=== PATIENT | male | born 1940 | race Caucasian/White ===

== ENCOUNTER 2016-09-25 07:20 | Inpatient (IN) ==
[~2016-09-25 07:20] MED LIST: ACETAMINOPHEN 500 MG TABLET PO ONE; CEFAZOLIN 1 G INJECTION IVP ONE; DEXAMETHASONE 4 MG/ML INJECTION IVP ONE; FAMOTIDINE PB 20 MG/50 ML BAG IV ONE; LIDOCAINE 1% (10mg/ml) 10mL MDV SQ ONE; MELOXICAM 15 MG TABLET PO ONE; METOCLOPRAMIDE 10mg/2ml INJECTION IVP ONE; NOZIN NASAL SWAB NAS ONE; ONDANSETRON 4 MG/2 ML INJECTION IVP ONE; TRANEXAMIC ACID 1,000 MG in NS 100 ML IV ONE
[2016-09-25] MEDS ORDERED: SALINE FLUSH 10ml SYRINGE IVF PRN (09:08)
[2016-09-25 10:08] VITALS: BMI 30.3
[2016-09-25] MEDS: LR 1,000 ML IV SCH ×2 (10:55→14:24)
[2016-09-25] MEDS ORDERED: LIDOCAINE 1% (10mg/ml) 2mL INJ PF SDV ID ONE (11:00)
--- NOTE | 2016-09-25 12:29 | Anesthesia Preoperative Report ---
Anesthesia Preoperative Record - Date and Time Date: 09/25/16 Preoperative Diagnosis: Rt [id number] Proposed Procedure: right tka NPO Since Date: 09/24/16 NPO Since Time: 23:00 Allergies/Adverse Reactions: Allergies Allergy/AdvReac Type Severity Reaction Status Date / Time simvastatin Allergy Mild pain Verified 09/25/16 10:29 atenolol Allergy Unknown SOA Verified 09/25/16 10:29 pregabalin [From Lyrica] Allergy Unknown tongue Verified 09/25/16 10:29 swelling methotrexate AdvReac Unknown orientation Verified 09/25/16 10:29 disturbances - Vital Signs Vital Signs: Temperature 99.5 F 09/25/16 10:05 Pulse Rate 95 09/25/16 10:05 Respiratory Rate 14 09/25/16 10:05 Blood Pressure 187/88 H 09/25/16 10:05 Pulse Oximetry 89 L 09/25/16 10:05 Oxygen Delivery Method Room Air Height and Weight: Height 1.85 m Weight 104.3 kg Body Mass Index 30.3 - Medications Inpatient Medications: Current Medications Epinephrine HCl 0.25 mg/Bupivacaine HCl 30 ml/Morphine Sulfate 15 mg/Ketorolac Tromethamine 60 mg/Sodium Chloride 65.25 mls @ 1 mls/hr OPSITE INTRAOP ONE PRN Reason: Protocol Stop: 09/28/16 01:14 Lactated Ringer's (Lactated Ringers) 1,000 mls @ 50 mls/hr IV .Q20H DANIELLA Last Admin: 09/25/16 10:55 Dose: 50 mls/hr Sodium Chloride (Iv Flush) 10 - 80 ml IVF PRN PRN PRN Reason: Flushing Home Medications: Home Medications Medication Instructions Recorded Confirmed Type Hydroxychloroquine Sulfate 200 mg PO BID #0 07/07/12 09/25/16 History [Plaquenil] Gabapentin 1 tab PO HS #0 cap 07/30/16 09/25/16 History Ibuprofen 1 tab PO Q4H PRN #0 tab 07/30/16 09/25/16 History Ipratropium/Albuterol Sulfate 1 unit AEROSOL DAILY PRN #0 vial 07/30/16 History [Iprat-Albut 0.5-3(2.5) mg/3 ml] Losartan Potassium 100 mg PO BID #0 tab 07/30/16 09/25/16 History Nortriptyline HCl 1 cap PO HS #0 07/30/16 09/25/16 History Oxaprozin [Daypro] 1 tab PO BID #42 tab 07/30/16 09/25/16 History Budesonide [Budesonide] 1 ampul INH DAILY 09/15/16 09/25/16 History Nerve Renew 1 cap PO DAILY 09/15/16 09/25/16 History - Medical History Cardiovascular: Reports: Hypertension - Surgical History Neurological Surgeries: Reports: Other (back surgery) HEENT Surgeries: Reports: Eye Surgery (Cataract OS) GI Surgery/Treatments: Reports: Appendectomy, Hernia Repair (RT ING), Colonoscopy (POLYP) Surgery/Treatment: REPORT: Other (right orchiectomy) Musculoskeletal Surgery/Tx: Reports: Orthopedic Surgery (exc left olecranon bursa) Anesthesia Reactions: None - Social History Smoking Status: Former smoker - Pertinent Findings EKG Rhythm: Normal Sinus Rhythm - Physical Exam Respiratory Exam: Present: lungs clear, bilateral breath sounds equal Cardiovascular Exam: Present: regular rate and rhythm, no murmur - Airway Assessment Mallampati Score: II TMD: 2 Fingerbreadths Neck Extension: fair Teeth: upper dentures, lower dentures Overall Assessment: no airway concerns - ASA ASA Score: 2 - Plan Anesthesia: General Inhalation Gases - Discussion Discussion: Discussed risks/options/alternatives of anesthesia and questions answered. Patient consents. Nursing pain assessment noted. Attestation Statement: Prior to the delivery of any anesthetic medication, I examined the patient, developed the plan, obtained the patient's consent and discussed the risk and benefits of the procedure with the patient/guardian.
[2016-09-25] MEDS ORDERED: ROPIVACAINE 0.5% (5mg/ml) 30ml INJ ONE (12:35)
[2016-09-25] MEDS ORDERED: MIDAZOLAM 2mg/2ml INJECTION IVP ONE (12:36)
[2016-09-25] MEDS ORDERED: [UNRECOGNIZED DRUG - OTHER] IV ONE (12:45)
[2016-09-25] MEDS ORDERED: VANCOMYCIN 1,000 MG INJECTION ONE (12:52)
[2016-09-25] MEDS ORDERED: FentaNYL 250 MCG/5 ML INJECTION ONE (12:56)
--- NOTE | 2016-09-25 12:58 | Anesthesia Procedure Note ---
Peripheral Nerve Blockade - Procedure Physician: Wero Urena MD Date: 09/25/16 Surgical Procedure: right knee arthroplasty Discussion: Discussed risks/options/alternatives of anesthesia and questions answered. Patient consents. Nursing pain assessment noted. Block Start: 12:39 Block Stop: 12:45 Blocked Employed: Adductor Canal Indication: Post-Operative Pain Approach: Right Side Confirmed Position: Supine Patient: Consent, Risks/Benefits Discussed, Informed, Post Block Act. Discussed IV Sedation: Yes Midazolam (mg): 2 Initial Vital Signs: Temperature 99.5 F 09/25/16 10:05 Temperature Source Oral 09/25/16 10:05 Pulse Rate 95 09/25/16 10:05 Respiratory Rate 14 09/25/16 10:05 Blood Pressure 187/88 H 09/25/16 10:05 Blood Pressure Mean 121 09/25/16 10:05 Blood Pressure Position Supine 09/25/16 10:05 Pulse Oximetry 89 L 09/25/16 10:05 Oxygen Delivery Method 09/25/16 10:05 Post Vital Signs: Temperature 99.5 F 09/25/16 10:05 Pulse Rate 95 09/25/16 10:05 Respiratory Rate 14 09/25/16 10:05 Blood Pressure 187/88 H 09/25/16 10:05 Pulse Oximetry 89 L 09/25/16 10:05 Oxygen Delivery Method Room Air Initial Pain Pain Score: 3 Post Block Pain Score: 3 Prep: Chlorhexadine/ETOH Ultrasound Used?: Yes - Injectate Ropivacaine (%): 0.5 Ropivacaine (mL): 20 Was Epi 1:200,000 Used?: No Injection: Injection made incrementally with constant monitoring and aspiration every ml
[2016-09-25] MEDS ORDERED: VANCOMYCIN 1,000 MG INJECTION IAR ONE (13:55)
[2016-09-25] MEDS ORDERED: HYDROMORPHONE 2 MG/ML INJECTION IVP PRN (14:18)
[2016-09-25] MEDS: EPINEPHrine 0.25 MG, BUPIVACAINE 0.25% PF 30 ML, MORPHINE SULFATE 15 MG, KETOROLAC INJ ... OPSITE ONE ×2 (14:22→15:10)
[2016-09-25] MEDS ORDERED: ONDANSETRON 4 MG/2 ML INJECTION ONE (15:03)
--- NOTE | 2016-09-25 15:16 | Operative Note ---
- Procedure Date of Admission: 09/25/16 Side: right Preoperative Diagnosis: knee primary DJD Postoperative Diagnosis: Same as preoperative diagnosis. Operation: total knee arthroplasty (right) Surgeon: Emelina Urena MD Intensivist: KAZ Swanson Complications: None. Anesthesia: General Inhalation Gases Peripheral Nerve Block: Saphenous-Right Estimated Blood Loss: See Anesthesia Record. Fluids: Please see Anesthesia Record. Description of Procedure: Mr. queen in his right knee were identified and marked in the preoperative holding area. He is brought back to the operating suite and general anesthetic was administered. He was intubated. The right lower extremity was prepped and draped in my normal sterile fashion. Timeout was performed A standard anterior incision followed by a medial parapatellar approach was utilized. He had full thickness lesions in the lateral compartment. A distal femoral cut was made in 5 of valgus using intramedullary guide. The femur was sized at a 7 and rotation set using the epicondylar axis. Distal femoral cuts were performed. A proximal tibial cut was made using extramedullary guide. Remaining osteophytes and meniscus were removed. Gaps were checked and they were well balanced and rectangular. Trial components were placed with a 9 mm spacer. This allowed for full range of motion and the patella tracked well. The knee was stable throughout range of motion. The patella was resurfaced with the knee in extension to a size 35. The tibia rotation was then marked and the tibia stamped at the proper rotation at a size 7. Leg was exsanguinated and the tourniquet inflated 250 mmHg. The bone was prepared for cementing and all components cemented into place and allowed to cure in extension. Betadine solution was used for 3 minutes during the curing period and then fully irrigated out with 1 L of normal saline. The tourniquet was deflated and hemostasis obtained with electrocautery. After the cement had cured the knee was taken through range of motion check for balance and stability which were good. Vancomycin powder was placed into the wound. The arthrotomy was closed with #1 Vicryl. The remainder of the wound was then closed by my political science research assistant utilizing 2-0 vycral in the subcutaneous tissue. 4-0 monocryl was used in the subcuticular layer followed by dermabond and a sterile dressing. After closure the patient will be transferred to the recovery room under the care of anesthesia.
--- NOTE | 2016-09-25 15:26 | History & Physical Update ---
- History and Physical Update Date: 09/25/16 Update: I evaluated this patient and found no changes in the history and clinical exam findings. The treatment plan and recommendations are also unchanged from the previous documentation.
--- NOTE | 2016-09-25 16:25 | Anesthesia Postoperative Note ---
- Date and Time Date: 09/25/16 Time: 16:25 - Status Patient Participated in Evaluation: Patient Participated in Person Vital Signs: Temperature 97 F 09/25/16 15:37 Pulse Rate 83 09/25/16 16:10 Respiratory Rate 18 09/25/16 16:10 Blood Pressure 137/74 09/25/16 16:10 Pulse Oximetry 92 09/25/16 16:10 Oxygen Delivery Method Simple Mask Oxygen Flow Rate 3 Respiratory Function: Airway Patent Cardiovascular Function: Regular Pulse EKG Rhythm: Normal Sinus Rhythm Mental Status: Alert and Oriented Pain Intensity: 0 Hydration: IV Infusing Complications During Recover: None Apparent - Follow-Up Instructions Instructions: Per Surgeon
[2016-09-25] MEDS ORDERED: DiphenhydrAMINE 50 MG/ML INJECTION IVP PRN (16:43)
[2016-09-25] MEDS ORDERED: ALBUTEROL/IPRATROPIUM 2.5mg-0.5mg/3ml NEB AEROSOL PRN (16:43)
[2016-09-25] MEDS ORDERED: NS 1,000 ML IV SCH (16:43)
[2016-09-25] MEDS ORDERED: LORazepam 1 MG TABLET PO PRN (16:43)
[2016-09-25] MEDS ORDERED: ONDANSETRON 4 MG/2 ML INJECTION IVP PRN (16:43)
[2016-09-25] MEDS ORDERED: NOZIN NASAL SWAB NAS ONE (16:43)
[2016-09-25] MEDS ORDERED: DiphenhydrAMINE 25 MG CAPSULE PO PRN (16:43)
--- NOTE | 2016-09-25 16:58 | XRay Report ---
Indication: postoperative image right knee replacement PROCEDURE: XR knee RT 2V: Encounter: Initial Comparison: None Findings: Postoperative changes of right total knee replacement are seen. There is expected postoperative subcutaneous gas. No evidence of hardware failure or acute fracture. No retained radiopaque surgical instruments or sponges. Overlying material causing artifact. Impression: New right total knee prosthesis without evidence of immediate complication. .
[2016-09-25] MEDS: ACETAMINOPHEN 325 MG TABLET PO SCH ×2 (17:48→21:17)
[2016-09-25] MEDS ORDERED: OXAPROZIN 600 MG TABLET PO SCH (21:00)
[2016-09-25] MEDS: HYDROXYCHLOROQUINE 200 MG TABLET PO SCH (21:16)
[2016-09-25] MEDS: NOZIN NASAL SWAB NAS SCH (21:16)
[2016-09-25] MEDS: LOSARTAN 100 MG TABLET PO SCH (21:17)
[2016-09-25] MEDS: DOCUSATE SODIUM 100 MG CAPSULE PO SCH (21:17)
[2016-09-25] MEDS: ASPIRIN *EC* 325 MG TABLET PO SCH (21:17)
[2016-09-25] MEDS: CEFAZOLIN 2 G in NS 100 ML IV SCH (21:18)
[2016-09-25] MEDS ORDERED: SENNOSIDES 8.6 MG TABLET PO SCH (22:00)
[2016-09-25] MEDS ORDERED: GABAPENTIN 400 MG CAPSULE PO SCH (22:00)
[2016-09-25] MEDS ORDERED: NORTRIPTYLINE 25 MG CAPSULE PO SCH (22:00)
[2016-09-26] MEDS: NOZIN NASAL SWAB NAS SCH (05:28)
[2016-09-26] MEDS: CEFAZOLIN 2 G in NS 100 ML IV SCH (05:28)
[2016-09-26 05:37] LABS: Anion Gap 10 MEQ/L (5-15); BUN/Creatinine Ratio 31 RATIO (6-26); CO2 - Carbon Dioxide - NMC 29 MEQ/L (22-30); Calcium - NMC 8.6 MG/DL (8.4-10.2); Chloride - NMC 102 MEQ/L (98-107); Glomerular Filtration Rate 82; Glucose - NMC 122 MG/DL (75-110); NA - Sodium - NMC 141 MEQ/L (134-144); Osmolality,Calculated 278 MOSM/KG (261-280); Potassium 4.6 MEQ/L (3.6-5)
[2016-09-26 05:39] LABS: Hematocrit 43.8 % (41-53); Hemoglobin 13.2 GM/DL (13.5-17.5); Mean Corpuscular Hemoglobin 29.3 UUG (26-34); Mean Corpuscular Volume 97.3 UM3 (80-100); Mean Platelet Volume 9.4 UM3 (9.4-12.4); RDW Standard Deviation 47.9 FL (36.9-50.2); Red Blood Count 4.5 M/MM3 (4.50-5.90); White Blood Count 10.6 T/MM3 (4.5-11.0)
--- NOTE | 2016-09-26 07:52 | Extended Care Facility Orders ---
Admission Orders Admit to:: Jail Allergies/Adverse Reactions: Allergies simvastatin Allergy (Mild, Verified 09/25/16 10:29) pain atenolol Allergy (Unknown, Verified 09/25/16 10:29) SOA pregabalin [From Lyrica] Allergy (Unknown, Verified 09/25/16 10:29) tongue swelling methotrexate Adverse Reaction (Unknown, Verified 09/25/16 10:29) orientation disturbances Admitting Diagnosis: Rt TKA-M17.11 Admitting Physician: Wero Urena MD Attending Physician: Wero Urena MD Anticiapted Length of Stay: 30 days or less Rehab Potential: good Rehab Prognosis: good Diet: 09/25/16 Dinner Regular Diet [DIET] Diet Modifications: May use Facility Protocol or Standing Orders: Yes May have flu vaccine: Yes Evaluations/Treatment: PT, OT Jail Certification: I certify that SNF services are required to be given on an Inpatient basis because of the patients need for intermediate care on a continuing basis for the condition(s) for which he/she received inpatient hospital services prior to his/her transfer to the SNF. SNF inpatient care is necessary for the following reasons Indication for Jail: Postop Assessment Care - Additional Information In Event of Arrest: Start CPR,call 911,send patient to the ER Referrals: Wero Urena MD [Physician] - 10/20/16 11:00 am Additional Orders: REGULAR DIET. WEIGHT BEARING TOLERATED
--- NOTE | 2016-09-26 08:44 | Orthopedic Progress Note ---
Date: Subjective/Severity of Illness: Canaan is doing great. No CP cough or feeling SOA. He did need oxygen overnight and RT feels he needs a sleep study. Was on up to 6L NC at one point. Nursing reports to me that anesthesia felt his baseline sats are around 88%. Deven feel good and is not aware of any breathing problems. His knee is not too painful. No other concerns at this time. Orthopedic Objective PO Vital signs: Temperature 96.9 F 09/26/16 07:54 Pulse Rate 69 09/26/16 07:54 Respiratory Rate 18 09/26/16 08:34 Blood Pressure 134/69 09/26/16 07:54 Pulse Oximetry 97 09/26/16 08:34 Oxygen Delivery Method Nasal Cannula Oxygen Flow Rate 4 Height and Weight: Height 6 ft 1 in Weight 233 lb 3.985 oz Body Mass Index 30.3 - Constitutional General Appearance: Present: alert, no acute distress - Respiratory Exam Present: non-labored (Sats in the 90's at this time.) - Extremities Exam Extremities: Present: pulses intact - Surgical Site Incision: Mepilex dressing intact, dressing intact, no drainage - Neurological Exam Present: no deficits - Psychiatric Exam Present: alert - Labs Result Diagrams: 09/26/16 04:14 09/26/16 04:14 Abnormal lab results 09/26/16 09/26/16 Range/Units 04:14 04:14 Hgb 13.2 L (13.5-17.5) GM/DL MCHC 30.1 L (31-37) GM/DL BUN 28.0 H (9-20) MG/DL BUN/Creatinine Ratio 31 H (6-26) RATIO Glucose 122 H (75-110) MG/DL H & H 09/26/16 Range/Units 04:14 Hgb 13.2 L (13.5-17.5) GM/DL Hct 43.8 (41-53) % Orthopedic Assessment and Plan (1) Arthritis of knee, right Status: Acute Assessment and Plan: Aspirin x 6 weeks for DVT coverage. SCD's for added protection. Mobilize with therapy. CM for discharge planning. Pt will need sleep study after discharge to [facility] for NAOMI. Hospital Course Summary Disclaimer: The visit summary below is not to be considered part of the above Progress Note.
[2016-09-26] MEDS: DOCUSATE SODIUM 100 MG CAPSULE PO SCH (08:53)
[2016-09-26] MEDS: HYDROXYCHLOROQUINE 200 MG TABLET PO SCH (08:54)
[2016-09-26] MEDS: LOSARTAN 100 MG TABLET PO SCH (08:54)
[2016-09-26] MEDS: Oxycodone *IR* 5 MG TABLET PO PRN ×2 (08:54→14:36)
[2016-09-26] MEDS: ACETAMINOPHEN 325 MG TABLET PO SCH ×2 (08:55→14:37)
[2016-09-26] MEDS: ASPIRIN *EC* 325 MG TABLET PO SCH (08:55)
[2016-09-26] MEDS ORDERED: BUDESONIDE INH.SOLN 0.5mg/2ml NEB IH SCH (09:00)
[2016-09-26] MEDS ORDERED: POLYETHYL GLYCOL 3350 17gm PACKET PO SCH (09:00)
[2016-09-26 11:58] VITALS: BP 135/72; PULSE 75; RESP 16; TEMP 96.4
--- NOTE | 2016-09-26 12:12 | Discharge Summary ---
Orthopedic Discharge Info Date of admission: 09/25/16 09:04 Anticipated date of discharge: 09/26/16 Primary care physician: BRENDA CARDOZO Attending Physician: Brenda Urena MD Consults: 09/25/16 09:31 Consult to Anesthesiology [CONS] Routine Consulting Provider: KAZ Devi Reason For Exam: Preoperative Assessment 09/25/16 16:43 Case Management Consult [CONS] Routine Reason For Exam: Discharge Planning DME-Walker [CONS] Routine Height: 6 ft 1 in Weight: 229 lb 15.074 oz Comment: change dressing in 2 weeks Total Joint Outpatient Therapy [CONS] Routine Comment: change dressing in 2 weeks - Discharge Diagnosis (1) Arthritis of knee, right Status: Acute - Procedures Procedures: Right TKA by Dr Urena 09/25/16 - Laboratory Result Diagrams: 09/26/16 04:14 09/26/16 04:14 Laboratory: Abnormal lab results 09/26/16 09/26/16 Range/Units 04:14 04:14 Hgb 13.2 L (13.5-17.5) GM/DL MCHC 30.1 L (31-37) GM/DL BUN 28.0 H (9-20) MG/DL BUN/Creatinine Ratio 31 H (6-26) RATIO Glucose 122 H (75-110) MG/DL H & H 09/26/16 Range/Units 04:14 Hgb 13.2 L (13.5-17.5) GM/DL Hct 43.8 (41-53) % Orthopedic Discharge HPI - HPI Comments This patient was admitted for elective surgical tx of end stage degenerative joint disease that failed to respond to conservative treatment. Further details of this is found in the admission H&P. Orthopedic Hospital Course Hospital course: 09/26/16 12:10 After appropriate preoperative clearance and signing of operative consent, the patient was given IV antibiotics, according to orthopedic protocol. The patient was taken to the operating room and underwent elective right total knee arthroplasty on 09/25/16. Following surgery, antibiotics were discontinued less than 24 hours according to joint protocol. Aspirin was initiated and SCDs added for DVT prevention. The dressing was clean, dry, and intact. Pain control was obtained via multimodal approach. Bowel motivation addressed with scheduled and PRN medications. Early mobilization was initiated through PT services. Pt did have a drop in his oxygen saturations at night and RT has recommended a sleep study as an outpatient. His labs are stable at discharge. Discharge arrangements made by a collaborative effort between the patient and Case Management. Follow-up is scheduled in 2-3 weeks. Discharge instructions given by orthopedic providers and nursing staff at discharge. Discharge condition was good. Ongoing care required?: No Discharge Plan - Med Rec/Dispo Referrals/Follow Up: Brenda Urena MD [Physician] - 10/20/16 11:00 am Felicitas Instructions: [facility] Postop Instructions Prescriptions: New Docusate Sodium [Colace] 100 mg PO BID capsule Oxycodone *Ir* [Roxicodone *Ir*] 5 - 15 mg PO Q3H PRN #60 tablet PRN Reason: Breakthrough Pain PEG 3350 17gm PACKET [Miralax] 17 gm PO DAILY packet Acetaminophen [Tylenol] 650 mg PO QID tablet Aspirin *EC* [Ecotrin] 325 mg PO BID tablet Milk of Magnesia [Mom] 30 ml PO DAILY udc Continue Hydroxychloroquine Sulfate [Plaquenil] 200 mg PO BID #0 Losartan Potassium 100 mg PO BID #0 tab Nortriptyline HCl 1 cap PO HS #0 Oxaprozin [Daypro] 1 tab PO BID #42 tab Ipratropium/Albuterol Sulfate [Iprat-Albut 0.5-3(2.5) mg/3 ml] 1 unit AEROSOL DAILY PRN #0 vial PRN Reason: Shortness Of Air/Wheezing Nerve Renew 1 cap PO DAILY Ibuprofen 1 tab PO Q4H PRN #0 tab PRN Reason: PAIN Gabapentin 1 tab PO HS #0 cap Budesonide 1 ampul INH DAILY - Disposition 01 Discharged Home, Self-Care
[2016-09-26 12:43] VITALS: O2SAT 89
[2016-09-26] MEDS ORDERED: SENNOSIDES 8.6 MG TABLET PO PRN (15:29)
[2016-09-27] MEDS ORDERED: BISACODYL 10 MG SUPPOSITORY RECTALLY SCH (20:00)
== END 2016-09-26 14:24 ==
LOC: SRG 09:04
PROVIDERS: ADMIT Orthopaedic Surgery; ATTEND Orthopaedic Surgery

== ENCOUNTER 2017-01-29 21:10 | Inpatient (IN) ==
[2017-01-29 21:40] VITALS: BMI 30.4
[2017-01-29] MEDS ORDERED: HYDROCODONE/APAP 7.5 MG/325 MG TABLET PO PRN (22:43)
[2017-01-29] MEDS ORDERED: SENNA + DOCUSATE TABLET PO PRN (22:45)
[2017-01-29] MEDS ORDERED: HYDROCODONE/APAP 5mg/325mg TABLET PO PRN (22:45)
[2017-01-29] MEDS ORDERED: ONDANSETRON 4 MG/2 ML INJECTION IVP PRN (22:45)
[2017-01-29] MEDS ORDERED: ALBUTEROL 2.5mg/3ml (0.083%) NEB AEROSOL PRN (22:56)
[2017-01-29] MEDS: D5-1/2NS 1,000 ML IV SCH (23:15)
--- NOTE | 2017-01-29 23:23 | History & Physical Report ---
History of Present Illness Date: 01/29/17 Chief complaint: SOA, Weakness HPI: Deven is a 76 year old male patient of [facility] in [place] who presented to the emergency department at [place] this evening with 2 weeks of progressive weakness. His legs gave out on him yesterday, and again today. He was not injured in any fall. 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 Urena, he had a subsequent revision with a wound VAC placed late in the summer. in the emergency department, he was noted to be tachycardic, and tachypneic and hypoxic And a chest x-ray revealed a left lower lobe infiltrate. His lactic acid was normal at 1.3. His white blood cell count was elevated at 11.9. Urinalysis was unremarkable. Blood cultures were drawn, and he was administered intravenous Rocephin and Zithromax. Given the concern about his right knee, Dr. Urena was contacted and recommended admission at [facility] for further evaluation and comanagement. Review of Systems - Constitutional Constitutional: Present: fever(s) (Subjective, about 1 week ago ), weakness. Absent: anorexia - Cardiovascular Cardiovascular: Present: dyspnea on exertion. Absent: chest pain, palpitations , syncope - Respiratory Respiratory: Present: dyspnea, dyspnea on exertion. Absent: cough, hemoptysis, pain on inspiration, chest congestion - Gastrointestinal Gastrointestinal: Absent: abdominal pain, change in bowel habits - Neurological Neurological: Present: frequent falls. Absent: abnormal gait, focal weakness, memory loss - Psychiatric Psychiatric: Absent: depression - Allergic/Immunologic Allergic/Immunologic: Absent: throat swelling [facility] Patient Stated Medical History Cerebrovascular Accident No Peripheral Neuropathy Yes Paralysis No Seizures No Syncope No Cataracts Yes Chronic Obstructive Pulmonary Yes Disease (COPD) Pneumonia Yes Sleep Apnea No Diabetes Mellitus Type 1 No Diabetes Mellitus Type 2 No Cirrhosis No Gastroesophageal Reflux No Disease Gastrointestinal Bleeding No Hepatitis No Hiatal Hernia No Obstructive Bowel No Ulcer No Other GI No Other Yes: left testicle removed age 45 Osteoarthritis No Other Musculoskeletal No Anesthesia Reactions No Blood Transfusions No Chemotherapy No Malignant Hyperthermia No Other No Depression No Now No Clinic Medical History (Last Reviewed 12/10/16 @ 12:31 by KAZ Ybarra) Obesity (BMI 30-39.9) (Acute Medical) Arthritis of knee, right (Acute Medical) COPD (chronic obstructive pulmonary disease) (Acute Medical) Tremor (Acute Medical) Neuropathy (Acute Medical) Arthritis (Acute Medical) Hiatal hernia (Chronic Medical) GERD (gastroesophageal reflux disease) (Acute Medical) HTN (hypertension) (Acute Medical) Surgical History: Exc. olecranon bursa, lumbar, appendectomy, hernia repair, rt. orchiectomy; R TKA 09/25/2016 Family History: Family History (Last Reviewed 12/10/16 @ 12:31 by KAZ Ybarra) Father High blood pressure Cerebral aneurysm Mother No problems noted. 2 brothers with neuropathy A brother is undergoing stem cell transplant therapy at the [facility] for a cancer involving his liver - Social History Smoking status: Former smoker (quit smoking about 20 years ago) Housing: house Household members: spouse ( his suffers from advancing dementia and he is her primary caregiver. He is concerned about her welfare and the need for additional services for her.) Current occupational status: retired Medications Home Medications Medication Instructions Recorded Confirmed Type Hydroxychloroquine Sulfate 200 mg PO BID #0 07/07/12 01/29/17 History [Plaquenil] Losartan Potassium 100 mg PO DAILY #0 tab 07/30/16 01/29/17 History Oxaprozin [Daypro] 1 tab PO BID #42 tab 07/30/16 01/29/17 History Budesonide [Budesonide] 2 ml AEROSOL PRN 01/29/17 01/29/17 History Cyanocobalamin (Vitamin B-12) 1 tab PO DAILY 01/29/17 01/29/17 History [B-12] Gabapentin [Neurontin] 1 cap PO HS 01/29/17 01/29/17 History Allergies Allergy/AdvReac Type Severity Reaction Status Date / Time simvastatin Allergy Mild pain Verified 12/10/16 08:57 atenolol Allergy Unknown SOA Verified 12/10/16 08:57 pregabalin [From Lyrica] Allergy Unknown tongue Verified 12/10/16 08:57 swelling methotrexate AdvReac Unknown orientation Verified 12/10/16 08:57 disturbances Exam Vital Signs: Temperature 101.2 F H 01/29/17 21:28 Pulse Rate 91 01/29/17 21:28 Respiratory Rate 22 01/29/17 21:28 Blood Pressure 148/74 H 01/29/17 21:28 Pulse Oximetry 87 L 11/02/17 21:28 Height/Weight/BMI: Height 6 ft 1 in Weight 104.7 kg Body Mass Index 30.4 - Constitutional Present: no acute distress, well nourished, well developed - Routine HEENT Exam Head: Present: normocephalic, atraumatic Eye: Present: EOMI, PERRL ENT: Present: mucous membranes moist, dentition normal - Routine Neck Exam Present: supple, full ROM. Absent: JVD - Routine Respiratory Exam Present: rhonchi ( In the left base). Absent: accessory muscle use, dyspnea, respiratory distress - Routine Cardiovascular Exam Present: RRR, no murmur - Routine Abdominal Exam Present: normoactive bowel sounds. Absent: tenderness - Routine Extremities Exam Present: normal capillary refill. Absent: cyanosis, clubbing, edema - Routine Back/Spine/Pelvis Exam Back/Spine: Present: full ROM - Routine Skin Exam Present: intact. Absent: rash - Routine Neurological Exam Present: alert, oriented X3, CN II-XII intact - Routine Psychiatric Exam Present: normal thought process, good insight, good judgment - Additional findings Additional findings: examination performed using telemedicine equipment with the assistance of the bedside nurse Results - Labs Labs: White blood cell count at [place] was reported at 11.9 with a hemoglobin of 10.8. Electrolytes, urinalysis, lactic acid levels were reported as within normal limits. Blood cultures obtained at [place] . Assessment and Plan (1) Community acquired pneumonia Problem details: blood cultures obtained in the emergency department at [place] and he was administered Rocephin and Zithromax. Current visit: Yes Status: Acute (2) Arthritis of knee, right Problem details: As above, he is status post total knee arthroplasty, with subsequent revision, and wound VAC is in place draining a scant amount of darker colored fluid. Current visit: No Status: Acute (3) Obesity (BMI 30-39.9) Current visit: No Status: Acute (4) COPD (chronic obstructive pulmonary disease) Problem details: He does not require home oxygen at baseline Current visit: No Status: Acute (5) Neuropathy Current visit: No Status: Acute Assessment and Plan: he is admitted, continued on Rocephin and Zithromax, supplemental oxygen and breathing treatments as needed. He does not have a productive cough, and repeat imaging after clinical resolution would be recommended. Physical and occupational therapies have been ordered on admission. In regards to his right knee, Dr. Urena is consulted and his familiarity with the patient and expertise is appreciated. His home medications are continued. We will provide further symptomatic supportive and diagnostic cares as the current workup, or changes in his clinical scenario, indicate. Plan of care was discussed with the patient at the time of my evaluation and he expressed understanding and a desire to proceed. Hospital Course Summary Disclaimer: The visit summary below is not to be considered part of the above Progress Note.
[2017-01-30] MEDS: LOSARTAN 100 MG TABLET PO SCH (08:38)
[2017-01-30] MEDS: AZITHROMYCIN 500 MG TABLET PO SCH (08:38)
[2017-01-30] MEDS: CEFTRIAXONE 1 G in NS 100 ML IV SCH (08:39)
[2017-01-30] MEDS: HYDROXYCHLOROQUINE 200 MG TABLET PO SCH ×2 (08:39→18:05)
[2017-01-30] MEDS: D5-1/2NS 1,000 ML IV SCH ×2 (08:40→19:09)
[2017-01-30] MEDS: ASPIRIN *EC* 81 MG TABLET PO SCH (08:40)
[2017-01-30] MEDS: CYANOCOBALAMIN (B-12) 500mcg TABLET PO SCH (08:49)
[2017-01-30] MEDS ORDERED: CYANOCOBALAMIN PO SCH (09:00)
[2017-01-30] MEDS: ACETAMINOPHEN 325 MG TABLET PO PRN (10:55)
[2017-01-30] MEDS ORDERED: BISACODYL 10 MG SUPPOSITORY RECTALLY PRN (11:24)
[2017-01-30] MEDS ORDERED: ALBUTEROL/IPRATROPIUM 2.5mg-0.5mg/3ml NEB AEROSOL PRN (11:44)
--- NOTE | 2017-01-30 11:49 | Orthopedic Consult Note ---
Orthopedic Consultation HPI - Consultation Info Consult Date: 01/30/17 Attending Physician: Yosef Toney MD - HPI Elements right knee Severity: none Duration: several months - History of Present Illness Mr. Davidson is a kind 76-year-old gentleman who is well-known to me. He underwent a right total knee arthroplasty without complication on 09/25/2016. He did subsequently have delayed healing of his wound. I returned with him to the operating room for repeat irrigation debridement and closure of the wound. The knee joint itself was not found to be infected. This did not involve the knee joint itself but rather the superficial skin incision. Unfortunately he continued to have wound complications and I sent him to wound clinic where he's been treated with aggressive debridement as well as wound VAC placement and graphics. He's been doing well in wound clinic and the wound has been healing well. I received a call from [facility] yesterday stating that he has pneumonia and they were concerned about his knee. I recommended transfer here for treatment of his pneumonia and for evaluation of his right knee. He is transferred here last night under the care of the hospitalist. Review of Systems - Constitutional Constitutional: Absent: chills, fever(s), night sweats - Cardiovascular Cardiovascular: Absent: chest pain, palpitations - Respiratory Respiratory: Absent: cough, dyspnea - Gastrointestinal Gastrointestinal: Absent: abdominal pain, nausea, vomiting - Musculoskeletal Musculoskeletal: Present: as per HPI - Integumentary/Breasts Integumentary: Absent: lesions, rash - Neurological Neurological: Absent: numbness, tingling PFSH Patient Stated Medical History Cerebrovascular Accident No Peripheral Neuropathy Yes Paralysis No Seizures No Syncope No Cataracts Yes Chronic Obstructive Pulmonary Yes Disease (COPD) Pneumonia Yes Sleep Apnea No Diabetes Mellitus Type 1 No Diabetes Mellitus Type 2 No Cirrhosis No Gastroesophageal Reflux No Disease Gastrointestinal Bleeding No Hepatitis No Hiatal Hernia No Obstructive Bowel No Ulcer No Other GI No Other Yes: left testicle removed age 45 Osteoarthritis No Other Musculoskeletal No Anesthesia Reactions No Blood Transfusions No Chemotherapy No Malignant Hyperthermia No Other No Depression No Now No Clinic Medical History (Last Reviewed 12/10/16 @ 12:31 by KAZ Ybarra) Community acquired pneumonia (Acute Medical) blood cultures obtained in the emergency department at [facility] and he was administered Rocephin and Zithromax. Obesity (BMI 30-39.9) (Acute Medical) Arthritis of knee, right (Acute Medical) As above, he is status post total knee arthroplasty, with subsequent revision, and wound VAC is in place draining a scant amount of darker colored fluid. COPD (chronic obstructive pulmonary disease) (Acute Medical) He does not require home oxygen at baseline Tremor (Acute Medical) Neuropathy (Acute Medical) Arthritis (Acute Medical) Hiatal hernia (Chronic Medical) GERD (gastroesophageal reflux disease) (Acute Medical) HTN (hypertension) (Acute Medical) Surgical History: Exc. olecranon bursa, lumbar, appendectomy, hernia repair, rt. orchiectomy; R TKA 09/25/2016 Family History: Family History (Last Reviewed 12/10/16 @ 12:31 by KAZ Ybarra) Father High blood pressure Cerebral aneurysm Mother No problems noted. - Social History Smoking status: Former smoker (quit smoking about 20 years ago) Medications Home Medications Medication Instructions Recorded Confirmed Type Hydroxychloroquine Sulfate 200 mg PO BID #0 07/07/12 01/29/17 History [Plaquenil] Losartan Potassium 100 mg PO DAILY #0 tab 07/30/16 01/29/17 History Oxaprozin [Daypro] 1 tab PO BID #42 tab 07/30/16 01/29/17 History Budesonide [Budesonide] 2 ml AEROSOL PRN 01/29/17 01/29/17 History Cyanocobalamin (Vitamin B-12) 1 tab PO DAILY 01/29/17 01/29/17 History [B-12] Gabapentin [Neurontin] 1 cap PO HS 01/29/17 01/29/17 History Allergies Allergy/AdvReac Type Severity Reaction Status Date / Time simvastatin Allergy Mild pain Verified 12/10/16 08:57 atenolol Allergy Unknown SOA Verified 12/10/16 08:57 pregabalin [From Lyrica] Allergy Unknown tongue Verified 12/10/16 08:57 swelling methotrexate AdvReac Unknown orientation Verified 12/10/16 08:57 disturbances Orthopedic Exam Vital signs: Temperature 96.9 F 01/30/17 07:33 Pulse Rate 76 01/30/17 08:53 Respiratory Rate 20 01/30/17 08:53 Blood Pressure 147/75 H 01/30/17 07:33 Pulse Oximetry 96 01/30/17 08:53 - Constitutional General Appearance: Present: no acute distress, well developed, well nourished - Respiratory Exam Present: non-labored - Cardiovascular Exam Present: pedal pulses intact - Extremities Exam Present: normal capillary refill. Absent: cyanosis, clubbing, edema - Knee Exam right Comments: The right knee has no effusion and no erythema. He has full active range of motion of the knee. There is a wound VAC in place and with the wound VAC removed he has 3 areas of the midline incision which are not completely epithelialized but have excellent granulation bed without signs of necrosis. - Integumentary Exam Present: pink, warm, dry - Neurological Exam Present: intact to light touch, no deficits - Psychiatric Exam Present: alert, normal affect - Labs Result Diagrams: 01/30/17 04:20 01/30/17 04:20 Abnormal lab results 01/30/17 01/30/17 Range/Units 04:20 04:20 RBC 3.93 L (4.50-5.90) M/MM3 Hgb 10.2 L (13.5-17.5) GM/DL Hct 35.7 L (41-53) % MCHC 28.6 L (31-37) GM/DL RDW Std Deviation 52.4 H (36.9-50.2) FL MPV 9.0 L (9.4-12.4) UM3 Neutrophils % (Manual) 78.0 H (33-66) % Lymphocytes % (Manual) 3.0 L (23-45) % Eosinophils % (Manual) 10.0 H (0-4) % Neutrophils # (Manual) 8.0 H (1.8-7.7) T/MM3 Lymphocytes # (Manual) 0.3 L (1-4.8) T/MM3 Eosinophils # (Manual) 1.0 H (0-0.5) T/MM3 Carbon Dioxide 31 H (22-30) MEQ/L BUN 23.0 H (9-20) MG/DL Calcium 8.0 L (8.4-10.2) MG/DL Albumin 2.9 L (3.5-5.0) G/DL Albumin/Globulin Ratio 0.8 L (1.1-2.2) RATIO H & H 01/30/17 Range/Units 04:20 Hgb 10.2 L (13.5-17.5) GM/DL Hct 35.7 L (41-53) % Impression and Recommendation (1) Delayed surgical wound healing Current visit: Yes Qualifiers: Encounter type: subsequent encounter Qualified Code(s): T81.89XD - Other complications of procedures, not elsewhere classified, subsequent encounter Status: Acute I see no clinical evidence of infection in the knee joint. I recommended continued wound VAC treatment at this time. When he is discharged from the hospital he can continue to follow up in wound clinic. Hospital Course Summary Disclaimer: The visit summary below is not to be considered part of the above Progress Note.
[2017-01-30] MEDS: GUAIFENESIN/D-METHORPHAN 600mg/30mg TABLET PO SCH ×2 (12:49→20:25)
[2017-01-30] MEDS ORDERED: PNEUMOCOCCAL 23 VACCINE 0.5ml INJECTION IM ONE (13:42)
[2017-01-30] MEDS: ALBUTEROL/IPRATROPIUM 2.5mg-0.5mg/3ml NEB AEROSOL SCH ×2 (15:21→19:16)
[2017-01-30] MEDS ORDERED: PNEUMOCOCCAL VAC ADMIN CHARGE INJ ONE (16:00)
[2017-01-30] MEDS: NAPROXEN 500 MG TABLET PO SCH (18:05)
[2017-01-30] MEDS: BUDESONIDE INH.SOLN 0.5mg/2ml NEB AEROSOL SCH (19:16)
[2017-01-30] MEDS: GABAPENTIN 400 MG CAPSULE PO SCH (20:26)
[2017-01-30] MEDS ORDERED: FALL RISK - PHARMACY CONSULT XX ONE (22:34)
[2017-01-31] MEDS: D5-1/2NS 1,000 ML IV SCH ×3 (05:33→18:44)
[2017-01-31] MEDS: BUDESONIDE INH.SOLN 0.5mg/2ml NEB AEROSOL SCH ×2 (07:39→20:07)
[2017-01-31] MEDS: ALBUTEROL/IPRATROPIUM 2.5mg-0.5mg/3ml NEB AEROSOL SCH ×4 (07:39→20:07)
[2017-01-31] MEDS: GUAIFENESIN/D-METHORPHAN 600mg/30mg TABLET PO SCH ×2 (09:43→20:51)
[2017-01-31] MEDS: LOSARTAN 100 MG TABLET PO SCH (09:43)
[2017-01-31] MEDS: AZITHROMYCIN 500 MG TABLET PO SCH (09:43)
[2017-01-31] MEDS: ASPIRIN *EC* 81 MG TABLET PO SCH (09:44)
[2017-01-31] MEDS: NAPROXEN 500 MG TABLET PO SCH ×2 (09:44→16:53)
[2017-01-31] MEDS: POLYETHYL GLYCOL 3350 17gm PACKET PO SCH (09:44)
[2017-01-31] MEDS: CEFTRIAXONE 1 G in NS 100 ML IV SCH (09:44)
[2017-01-31] MEDS: HYDROXYCHLOROQUINE 200 MG TABLET PO SCH ×2 (09:44→16:54)
[2017-01-31] MEDS: CYANOCOBALAMIN (B-12) 500mcg TABLET PO SCH (09:45)
--- NOTE | 2017-01-31 12:55 | Progress Note ---
- Date 01/31/17 Subjective: F/U: Pneumonia, Acute hypoxic respiratory insufficiency, COPD Doing fair. Feels chest congestion starting to loosen up, but not mobilizing sputum. Little cough, but congested. Still needing O2. No pain with breathing. Eating well-no nausea or ab pain. No f/c. Objective Vital signs: Temperature 97.5 F 01/31/17 08:00 Pulse Rate 76 01/31/17 08:00 Respiratory Rate 18 01/31/17 12:34 Blood Pressure 128/63 01/31/17 08:00 Pulse Oximetry 92 01/31/17 12:34 Height/Weight/BMI: Height 1.85 m Weight 104.5 kg Body Mass Index 30.4 - Constitutional Present: well nourished, well developed, cooperative - Routine HEENT Exam Head: Present: normocephalic, atraumatic Eye: Present: EOMI, PERRL ENT: Present: mucous membranes moist - Routine Respiratory Exam Present: decreased breath sounds, prolonged expiratory phase, distant breath sounds, diminished air movement. Absent: rales, wheezes, crackles - Routine Cardiovascular Exam Present: RRR, no murmur - Routine Abdominal Exam Present: soft, normoactive bowel sounds, non distended, non tender - Routine Extremities Exam Present: cyanosis, clubbing, pulses intact. Absent: edema Comments: SCD in place - Routine Musculoskeletal Exam Musculoskeletal: Present: no clubbing or cyanosis, normal strength - Routine Skin Exam Present: dry, warm - Routine Neurological Exam Present: alert, oriented X3, CN II-XII intact, moving all extremities, vision grossly intact, hearing grossly intact, normal speech. Absent: altered mental status - Routine Psychiatric Exam Present: normal affect, normal thought process, cooperative. Absent: anxious Results - Labs CBC & Chem 7: 01/31/17 04:29 01/31/17 04:29 Assessment and Plan (1) Community acquired pneumonia Problem details: blood cultures obtained in the emergency department at [facility] and he was administered Rocephin and Zithromax. Current visit: Yes Status: Acute (2) COPD (chronic obstructive pulmonary disease) Problem details: He does not require home oxygen at baseline Current visit: No Status: Acute (3) Neuropathy Current visit: No Status: Acute (4) Arthritis of knee, right Problem details: As above, he is status post total knee arthroplasty, with subsequent revision, and wound VAC is in place draining a scant amount of darker colored fluid. Current visit: No Status: Acute (5) Obesity (BMI 30-39.9) Current visit: No Status: Acute Assessment and Plan: Assessment Pneumonia Acute hypoxic respiratory insufficiency COPD Non-healing surgical wound to right knee RA/OA Chronic Plaquenil use Neuropathy GERD Obesity Plan Decrease IVF to 50cc/hr - oral drive increasing. Continue antibiotics and neb treatment. Weaning O2 attempted, but RA saturation decreased to 85%. Monitor lab. DVT Prophylaxis: SCD's Resuscitation Status: Full Code - Time spent with patient Time with patient PN: 25 minutes Hospital Course Summary Disclaimer: The visit summary below is not to be considered part of the above Progress Note. Hospital Course: 01/29/17 Inpatient admission Assessment Pneumonia Acute hypoxic respiratory insufficiency COPD Non-healing surgical wound to right knee RA/OA Chronic Plaquenil use Neuropathy GERD Obesity Plan he is admitted, continued on Rocephin and Zithromax, supplemental oxygen and breathing treatments as needed. He does not have a productive cough, and repeat imaging after clinical resolution would be recommended. Physical and occupational therapies have been ordered on admission. In regards to his right knee, Dr. Urena is consulted and his familiarity with the patient and expertise is appreciated. His home medications are continued. We will provide further symptomatic supportive and diagnostic cares as the current workup, or changes in his clinical scenario, indicate. Plan of care was discussed with the patient at the time of my evaluation and he expressed understanding and a desire to proceed. 01/30/17 Continue Rocephin and azithromycin for pulmonary coverage Neb treatments of DuoNeb QID and budesonide BID due to COPD. Mucinex DM and acapella for mucolytic effect. Consult with Dr Urena for wound care. Routine Miralax to decrease risk for constipation. MOM and Dulcolax prn. PT/OT to help improve functional status. 01/31/17 Decrease IVF to 50cc/hr - oral drive increasing. Continue antibiotics and neb treatment. Weaning O2 attempted, but RA saturation decreased to 85%. Monitor lab.
[2017-01-31] MEDS: ACETAMINOPHEN 325 MG TABLET PO PRN ×2 (15:02→20:50)
[2017-01-31] MEDS: GABAPENTIN 400 MG CAPSULE PO SCH (20:50)
[2017-02-01] MEDS: ACETAMINOPHEN 325 MG TABLET PO PRN (05:05)
[2017-02-01] MEDS: BUDESONIDE INH.SOLN 0.5mg/2ml NEB AEROSOL SCH (09:01)
[2017-02-01] MEDS: ALBUTEROL/IPRATROPIUM 2.5mg-0.5mg/3ml NEB AEROSOL SCH ×4 (09:01→19:53)
[2017-02-01] MEDS: AZITHROMYCIN 500 MG TABLET PO SCH (10:01)
[2017-02-01] MEDS: CYANOCOBALAMIN (B-12) 500mcg TABLET PO SCH (10:01)
[2017-02-01] MEDS: POLYETHYL GLYCOL 3350 17gm PACKET PO SCH (10:01)
[2017-02-01] MEDS: GUAIFENESIN/D-METHORPHAN 600mg/30mg TABLET PO SCH ×2 (10:02→20:07)
[2017-02-01] MEDS: NAPROXEN 500 MG TABLET PO SCH ×2 (10:02→17:22)
[2017-02-01] MEDS: LOSARTAN 100 MG TABLET PO SCH (10:02)
[2017-02-01] MEDS: HYDROXYCHLOROQUINE 200 MG TABLET PO SCH ×2 (10:03→17:21)
[2017-02-01] MEDS: ASPIRIN *EC* 81 MG TABLET PO SCH (10:03)
[2017-02-01] MEDS: CEFTRIAXONE 1 G in NS 100 ML IV SCH (10:04)
--- NOTE | 2017-02-01 10:52 | Progress Note ---
<Ashley Smith V - Last Filed: 02/01/17 10:47> - Date 02/01/17 Subjective: Mr Davidson is seen this morning while up in the chair. He states that he is feeling stronger today. His cough is now productive and he is on 2 liters by n/ c. Denies chest pain, GI complaints. He states that he has to be careful not to over-eat as this causes him to feel more short of breath. Vital signs stable. Objective Vital signs: Temperature 95.8 F L 02/01/17 08:20 Pulse Rate 67 02/01/17 08:20 Respiratory Rate 16 02/01/17 09:02 Blood Pressure 131/84 02/01/17 08:20 Pulse Oximetry 93 02/01/17 09:02 Height/Weight/BMI: Height 1.85 m Weight 108.1 kg Body Mass Index 30.4 - Constitutional Present: no acute distress, well nourished, well developed - Routine HEENT Exam Eye: Present: EOMI ENT: Present: mucous membranes moist, dentition normal - Routine Respiratory Exam Present: CTA bilaterally. Absent: wheezes - Routine Cardiovascular Exam Present: RRR, S1, S2. Absent: murmur - Routine Abdominal Exam Present: soft, normoactive bowel sounds, non distended. Absent: tenderness - Routine Extremities Exam Present: no edema, pulses intact Comments: wound vac intact - Routine Skin Exam Present: intact, dry, warm - Routine Neurological Exam Present: alert, oriented X3, CN II-XII intact - Routine Lymphatic Exam Lymphatic: Absent: adenopathy - Routine Psychiatric Exam Present: normal affect, cooperative Results - Labs CBC & Chem 7: 02/01/17 04:50 02/01/17 04:50 Assessment and Plan (1) Neuropathy Current visit: No Status: Acute (2) COPD (chronic obstructive pulmonary disease) Problem details: He does not require home oxygen at baseline Current visit: No Status: Acute (3) Arthritis of knee, right Problem details: As above, he is status post total knee arthroplasty, with subsequent revision, and wound VAC is in place draining a scant amount of darker colored fluid. Current visit: No Status: Acute (4) Obesity (BMI 30-39.9) Current visit: No Status: Acute (5) Community acquired pneumonia Problem details: blood cultures obtained in the emergency department at [facility] and he was administered Rocephin and Zithromax. Current visit: Yes Status: Acute Assessment and Plan: Assessment Pneumonia Acute hypoxic respiratory insufficiency COPD Non-healing surgical wound to right knee RA/OA Chronic Plaquenil use Neuropathy GERD Obesity Plan Continue to wean off oxygen. On 2 liters this morning. Scheduled breathing tx Continue with Rocephin and azithromycin for antimicrobial coverage. Mucinex and Acapella Continue with wound Vac and outpatient wound clinic as recommended by Dr Urena Hospital Course Summary Disclaimer: The visit summary below is not to be considered part of the above Progress Note. Hospital Course: 01/29/17 Inpatient admission Assessment Pneumonia Acute hypoxic respiratory insufficiency COPD Non-healing surgical wound to right knee RA/OA Chronic Plaquenil use Neuropathy GERD Obesity Plan he is admitted, continued on Rocephin and Zithromax, supplemental oxygen and breathing treatments as needed. He does not have a productive cough, and repeat imaging after clinical resolution would be recommended. Physical and occupational therapies have been ordered on admission. In regards to his right knee, Dr. Urena is consulted and his familiarity with the patient and expertise is appreciated. His home medications are continued. We will provide further symptomatic supportive and diagnostic cares as the current workup, or changes in his clinical scenario, indicate. Plan of care was discussed with the patient at the time of my evaluation and he expressed understanding and a desire to proceed. 01/30/17 Continue Rocephin and azithromycin for pulmonary coverage Neb treatments of DuoNeb QID and budesonide BID due to COPD. Mucinex DM and acapella for mucolytic effect. Consult with Dr Urena for wound care. Routine Miralax to decrease risk for constipation. MOM and Dulcolax prn. PT/OT to help improve functional status. 01/31/17 Decrease IVF to 50cc/hr - oral drive increasing. Continue antibiotics and neb treatment. Weaning O2 attempted, but RA saturation decreased to 85%. Monitor lab. 02/01/17 Plan Continue to wean off oxygen. On 2 liters this morning. Scheduled breathing tx Continue with Rocephin and azithromycin for antimicrobial coverage. Mucinex and Acapella Continue with wound Vac and outpatient wound clinic as recommended by Dr Urena <Yosef Toney D - Last Filed: 02/01/17 14:36> - Date 02/01/17 Objective Vital signs: Temperature 95.8 F L 02/01/17 08:20 Pulse Rate 67 02/01/17 08:20 Respiratory Rate 16 02/01/17 11:53 Blood Pressure 131/84 02/01/17 08:20 Pulse Oximetry 93 02/01/17 09:02 Height/Weight/BMI: Height 1.85 m Weight 108.1 kg Body Mass Index 30.4 Results - Labs CBC & Chem 7: 02/01/17 04:50 02/01/17 04:50 Assessment and Plan (1) Community acquired pneumonia Problem details: blood cultures obtained in the emergency department at [place] [facility] and he was administered Rocephin and Zithromax. Current visit: Yes Status: Acute (2) COPD (chronic obstructive pulmonary disease) Problem details: He does not require home oxygen at baseline Current visit: No Status: Acute (3) Neuropathy Current visit: No Status: Acute (4) Arthritis of knee, right Problem details: As above, he is status post total knee arthroplasty, with subsequent revision, and wound VAC is in place draining a scant amount of darker colored fluid. Current visit: No Status: Acute (5) Obesity (BMI 30-39.9) Current visit: No Status: Acute Assessment and Plan: Assessment Pneumonia Acute hypoxic respiratory insufficiency COPD Non-healing surgical wound to right knee RA/OA Chronic Plaquenil use Neuropathy GERD Obesity Have independently interviewed and examined pt. Chart reviewed. Case discussed with my CHILD PROTECTION SPECIALIST. Care plan developed with my CHILD PROTECTION SPECIALIST; agree with above. Doing about the same. Still needing O2, but feels less congestion. No pain as he breaths. Eating well. Lung: decreased, no wheezes or distress CV: regular MSE: awake alert appropriate Plan: Continue antibiotics. May stop IVF. Wean O2. Encourage ambulation. Recheck CXR in am. Continue with supportive care. Hospital Course Summary Disclaimer: The visit summary below is not to be considered part of the above Progress Note.
[2017-02-01] MEDS: D5-1/2NS 1,000 ML IV SCH (14:25)
[2017-02-01] MEDS: GABAPENTIN 400 MG CAPSULE PO SCH (20:07)
[2017-02-02] MEDS: ALBUTEROL/IPRATROPIUM 2.5mg-0.5mg/3ml NEB AEROSOL SCH ×4 (06:44→20:04)
[2017-02-02] MEDS: BUDESONIDE INH.SOLN 0.5mg/2ml NEB AEROSOL SCH ×2 (06:45→20:04)
--- NOTE | 2017-02-02 07:50 | XRay Report ---
LOCATION OF DICTATION: [facility] EXAM: XR chest 2V HISTORY: F/U pneumonia COMPARISON: No prior studies available for comparison. FINDINGS: The heart size is normal. The mediastinal configuration is unremarkable. There is linear atelectasis or scarring within the left lung base. There is no evidence for a pneumothorax. The osseous structures are within normal limits. IMPRESSION: Linear atelectasis or scarring within the left lung base without evidence for developing pneumonia. The heart size is normal. .
[2017-02-02] MEDS: CEFTRIAXONE 1 G in NS 100 ML IV SCH (09:40)
--- NOTE | 2017-02-02 09:40 | Progress Note ---
<Mari Bradshaw D - Last Filed: 02/02/17 09:44> - Date 02/02/17 Subjective: [place] reports that he is starting to bring stuff up with his cough. His breathing is getting better now that his cough is more productive. No chest pain. He's been walking more and denies feeling dizzy. His leg weakness has improved significantly. No abdominal pain or GI complaints. Appetite has been stable. He states that he had an itchy spot on his right knee from where the tape was and he scratched off a small area and it started to bleed. Objective Vital signs: Temperature 97.4 F 02/02/17 07:00 Pulse Rate 75 02/02/17 07:00 Respiratory Rate 20 02/02/17 07:00 Blood Pressure 146/75 H 02/02/17 07:00 Pulse Oximetry 93 02/02/17 07:00 Height/Weight/BMI: Height 1.85 m Weight 108.1 kg Body Mass Index 30.4 - Constitutional Present: no acute distress, well nourished, well developed - Routine HEENT Exam Head: Present: normocephalic Eye: Absent: conjunctival icterus ENT: Present: mucous membranes moist, oropharynx clear - Routine Respiratory Exam Present: crackles (faint bibasilar) - Routine Cardiovascular Exam Present: RRR, S1, S2, murmur (2/6 systolic) - Routine Abdominal Exam Present: normoactive bowel sounds, non tender, distended - Routine Extremities Exam Present: edema (1+ pedal) - Routine Skin Exam Present: intact, dry, warm, wounds (abrasion to right knee; wound VAC & Kurt wrap ) - Routine Neurological Exam Present: alert, oriented X3 - Routine Psychiatric Exam Present: normal affect, normal thought process, cooperative Results - Labs CBC & Chem 7: 02/02/17 04:13 02/02/17 04:13 Assessment and Plan (1) COPD (chronic obstructive pulmonary disease) Problem details: He does not require home oxygen at baseline Current visit: No Status: Acute (2) Community acquired pneumonia Problem details: blood cultures obtained in the emergency department at [place] and he was administered Rocephin and Zithromax. Current visit: Yes Status: Acute Assessment and Plan: Assessment Pneumonia Acute hypoxic respiratory insufficiency COPD Non-healing surgical wound to right knee RA/OA Chronic Plaquenil use Neuropathy GERD Obesity Plan Cont. abx for CAP. Still requiring 2L of O2 but VS otherwise stable. Continue nebs. Weight has trended up from 104.7 to 108.1 with pos fluid balance daily - will give Lasix IV x1. Cont. care for right knee wound. Dr. Urena has been consulted. D/W Dr. Toney. Hospital Course Summary Disclaimer: The visit summary below is not to be considered part of the above Progress Note. Hospital Course: 01/29/17 Inpatient admission Assessment Pneumonia Acute hypoxic respiratory insufficiency COPD Non-healing surgical wound to right knee RA/OA Chronic Plaquenil use Neuropathy GERD Obesity Plan he is admitted, continued on Rocephin and Zithromax, supplemental oxygen and breathing treatments as needed. He does not have a productive cough, and repeat imaging after clinical resolution would be recommended. Physical and occupational therapies have been ordered on admission. In regards to his right knee, Dr. Urena is consulted and his familiarity with the patient and expertise is appreciated. His home medications are continued. We will provide further symptomatic supportive and diagnostic cares as the current workup, or changes in his clinical scenario, indicate. Plan of care was discussed with the patient at the time of my evaluation and he expressed understanding and a desire to proceed. 01/30/17 Continue Rocephin and azithromycin for pulmonary coverage Neb treatments of DuoNeb QID and budesonide BID due to COPD. Mucinex DM and acapella for mucolytic effect. Consult with Dr Urena for wound care. Routine Miralax to decrease risk for constipation. MOM and Dulcolax prn. PT/OT to help improve functional status. 01/31/17 Decrease IVF to 50cc/hr - oral drive increasing. Continue antibiotics and neb treatment. Weaning O2 attempted, but RA saturation decreased to 85%. Monitor lab. 02/01/17 Continue to wean off oxygen. On 2 liters this morning. Scheduled breathing tx Continue with Rocephin and azithromycin for antimicrobial coverage. Mucinex and Acapella Continue with wound Vac and outpatient wound clinic as recommended by Dr Urena 02/02/17 Cont. abx for CAP. Still requiring 2L of O2 but VS otherwise stable. Continue nebs. Weight has trended up from 104.7 to 108.1 with pos fluid balance daily - will give Lasix IV x1. <Yosef Toney - Last Filed: 02/02/17 13:37> - Date 02/02/17 Objective Vital signs: Temperature 97.4 F 02/02/17 07:00 Pulse Rate 75 02/02/17 07:00 Respiratory Rate 18 02/02/17 11:38 Blood Pressure 146/75 H 02/02/17 07:00 Pulse Oximetry 92 02/02/17 11:38 Height/Weight/BMI: Height 1.85 m Weight 108 kg Body Mass Index 30.4 Results - Labs CBC & Chem 7: 02/02/17 04:13 02/02/17 04:13 Assessment and Plan (1) COPD (chronic obstructive pulmonary disease) Problem details: He does not require home oxygen at baseline Current visit: No Status: Acute (2) Community acquired pneumonia Problem details: blood cultures obtained in the emergency department at [place] and he was administered Rocephin and Zithromax. Current visit: Yes Status: Acute Assessment and Plan: Assessment Pneumonia Acute hypoxic respiratory insufficiency COPD Non-healing surgical wound to right knee Wound vac placed prior to admission RA/OA Chronic Plaquenil use Neuropathy GERD Obesity Have independently interviewed and examined pt. Chart reviewed. 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 Care plan developed with my supervision; agree with above. Feels like he is improving. Breathing better-note SOA when up and moving (and SOA getting up from chair-belly pushing into his lungs), but less cough and congestion. No pain with breathing. Walking more and better. Eating well. Stools still not moved. No ab pain. Urinating well. No f/c. Lungs: decreased bilaterally. No distress. No wheezes CV: regular MSE: awake alert appropriate Plan: CXR showing atelectasis - will add IS. Encourage continued use of Acapella. Continue to wean O2. Wound consult for wound vac care. Lasix given as weight with increase. No bowel with routine Miralax (Senna plus tried once yesterday) - encourage dulcolax use. Day 4 of azithromycin - could stop after tomorrows dose. CM making arrangements for skilled care. Time spent with patient care 25 minutes. - Time spent with patient Time with patient PN: 25 minutes Hospital Course Summary Disclaimer: The visit summary below is not to be considered part of the above Progress Note.
[2017-02-02] MEDS: AZITHROMYCIN 500 MG TABLET PO SCH (09:41)
[2017-02-02] MEDS: LOSARTAN 100 MG TABLET PO SCH (09:41)
[2017-02-02] MEDS: CYANOCOBALAMIN (B-12) 500mcg TABLET PO SCH (09:41)
[2017-02-02] MEDS: POLYETHYL GLYCOL 3350 17gm PACKET PO SCH (09:41)
[2017-02-02] MEDS: NAPROXEN 500 MG TABLET PO SCH ×2 (09:42→17:26)
[2017-02-02] MEDS: GUAIFENESIN/D-METHORPHAN 600mg/30mg TABLET PO SCH ×2 (09:42→20:37)
[2017-02-02] MEDS: ASPIRIN *EC* 81 MG TABLET PO SCH (09:43)
[2017-02-02] MEDS: HYDROXYCHLOROQUINE 200 MG TABLET PO SCH ×2 (09:44→17:25)
[2017-02-02] MEDS ORDERED: FUROSEMIDE 20 MG/2 ML INJECTION IVP ONE (09:53)
--- NOTE | 2017-02-02 17:01 | Wound Care Progress Note ---
Wound Center Progress Note: Pt known to wound clinc, today pt is due for a wound vac change. This RN in to change vac however, upon removing vac wound was significantly better and after consulting with Dr Urena wound vac was DC'd . At this time Aquecell AG applied to wound bed then covered with Mepilex. Change q 3 days and PRN
[2017-02-02] MEDS: GABAPENTIN 400 MG CAPSULE PO SCH (20:38)
[2017-02-03] MEDS: BUDESONIDE INH.SOLN 0.5mg/2ml NEB AEROSOL SCH (07:04)
[2017-02-03] MEDS: ALBUTEROL/IPRATROPIUM 2.5mg-0.5mg/3ml NEB AEROSOL SCH ×2 (07:04→10:32)
[2017-02-03 07:43] VITALS: BP 137/73; TEMP 96.1
[2017-02-03] MEDS: NAPROXEN 500 MG TABLET PO SCH (08:35)
[2017-02-03] MEDS: HYDROXYCHLOROQUINE 200 MG TABLET PO SCH (08:35)
[2017-02-03] MEDS: CEFTRIAXONE 1 G in NS 100 ML IV SCH (08:36)
[2017-02-03] MEDS: ASPIRIN *EC* 81 MG TABLET PO SCH (08:36)
[2017-02-03] MEDS: AZITHROMYCIN 500 MG TABLET PO SCH (08:36)
[2017-02-03] MEDS: POLYETHYL GLYCOL 3350 17gm PACKET PO SCH (08:37)
[2017-02-03] MEDS: CYANOCOBALAMIN (B-12) 500mcg TABLET PO SCH (08:37)
[2017-02-03] MEDS: LOSARTAN 100 MG TABLET PO SCH (08:37)
[2017-02-03] MEDS: GUAIFENESIN/D-METHORPHAN 600mg/30mg TABLET PO SCH (08:37)
[2017-02-03 11:26] VITALS: PULSE 70; RESP 20; O2SAT 92
--- NOTE | 2017-02-03 13:39 | Extended Care Facility Orders ---
Admission Orders Allergies/Adverse Reactions: Allergies simvastatin Allergy (Mild, Verified 12/10/16 08:57) pain atenolol Allergy (Unknown, Verified 12/10/16 08:57) SOA pregabalin [From Lyrica] Allergy (Unknown, Verified 12/10/16 08:57) tongue swelling methotrexate Adverse Reaction (Unknown, Verified 12/10/16 08:57) orientation disturbances Admitting Diagnosis: pneumonia Admitting Physician: Yosef Toney MD Attending Physician: Opal Sal MD Code Status: Full Code Anticiapted Length of Stay: 30 days or less Rehab Potential: good Rehab Prognosis: good Diet: Regular Diet Wound/Incision Care: Aquacel Ag applied to right knee wound covered by Mepilex, change every 3 days or as needed (last changed 02/02/17) May use Facility Protocol or Standing Orders: Yes May have flu vaccine: Yes Evaluations/Treatment: PT, OT, RT Care Home Certification: I certify that SNF services are required to be given on an Inpatient basis because of the patients need for care home care on a continuing basis for the condition(s) for which he/she received inpatient hospital services prior to his/her transfer to the SNF. SNF inpatient care is necessary for the following reasons Indication for Care Home: Wound Care/Assessment, Teach COPD Management, Other (strengthening/conditioning, monitor oxygen) - Additional Information In Event of Arrest: Start CPR,call 911,send patient to the ER Resident is Aware of Diagnosis: Yes Referrals: Wero Urena MD [Physician] - (1-2 weeks at wound care clinic) Wero Hammer MD [Physician] - 1 Week Additional Orders: Oxygen saturation borderline for 24 hours prior to discharge- has required 1-2 L intermittently although oxygen saturation at noon was 92% on room air. Monitor oxygen saturation, O2 when necessary to maintain saturation above 90%. Follow-up with Dr. Hammer within 1 week. Follow-up with Dr. Urena at wound care clinic at [facility] in 1-2 weeks. Augmentin for 2 days on 02/04 and 02/05 to complete 1 week antibiotic therapy. Pneumovax-23 valent, given on 01/30/17
--- NOTE | 2017-02-03 13:46 | Discharge Summary ---
Discharge Information Date of admission: 01/29/17 21:10 Anticipated date of discharge: 02/03/17 Attending Physician: Opal Sal MD Primary care physician: Radha Panda MD Consults: Wero Urena Reason For Exam: R knee post-revision wound vac - Discharge Diagnosis (1) Acute respiratory failure with hypoxia Status: Acute (2) Community acquired pneumonia Status: Acute (3) COPD (chronic obstructive pulmonary disease) Status: Acute (4) Delayed surgical wound healing Status: Chronic - Laboratory Labs: 02/02/17 04:13 02/03/17 04:30 - Radiology Radiology: Chest x-ray on 02/01/17 demonstrated linear atelectasis or scarring at the left base without evidence of pneumonia. History of Present Illness HPI: Deven is a 76 year old male patient [facility] in [place] who presented to the emergency department at [place] this evening with 2 weeks of progressive weakness. His legs gave out on him yesterday, and again today. He was not injured in any fall. 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 Urena, he had a subsequent revision with a wound VAC placed late in the summer. In the emergency department, he was noted to be tachycardic, and tachypneic and hypoxic A chest x-ray revealed a left lower lobe infiltrate. His lactic acid was normal at 1.3. His white blood cell count was elevated at 11.9. Urinalysis was unremarkable. Blood cultures were drawn, and he was administered intravenous Rocephin and Zithromax. Given the concern about his right knee, Dr. Urena was contacted and recommended admission at [facility] for further evaluation and comanagement. Hospital Course This is a general summary of the patient's hospital course. For more details refer to the complete medical record. Hospital course: Assessment Pneumonia, [id number] Acute hypoxic respiratory failure COPD Non-healing surgical wound to right knee RA/OA Normocytic anemia Chronic Plaquenil use Neuropathy GERD Obesity Hospital course Mr. Davidson was continued on IV Rocephin and Zithromax for 5 day course in conjunction with supplemental oxygen and breathing treatments as needed. Mucinex DM was added and an Acapella valve initiated to help with management of secretions. Mild hypoxia persisted through the hospitalization with patient remaining on low-flow oxygen through the morning of discharge as described below. The patient was seen by Dr. Urena during the hospitalization due to persistent wound of his right knee. Wound has improved significantly with recent use of wound VAC which was discontinued prior to discharge also topical dressings are still being utilized and follow-up the wound care clinic in 1-2 weeks is strongly recommended. The patient's weight increased several kilograms during the hospitalization requiring diuresis on 02/03 with good result although discharge weight remains about 2 kg above his admission weight. Patient worked with physical therapy throughout the hospitalization due to decreased endurance and continued strengthening at shelter was recommended at discharge. This has been coordinated with the assistance case management with discharge plan to [facility] in [place]. On 02/03 the patient was felt stable for discharge. At this time he denied dyspnea at rest or with activity and reported only minimal cough and sputum production. At rest he intermittently requires low-flow supplemental oxygen of 1 -2 L but with activities and lung expansion oxygenation improves. He ambulated without oxygen on this morning with oxygen saturation maintaining adequately on room air by patient report. Last reported oxygen was 92% on room air. Patient denies having any knee pain and denies discomfort in this knee ambulating. Wound VAC was discontinued yesterday with topical dressings initiated. Patient denied fever or nausea and reports his appetite is good. On examination there is minimal coarseness in the mid right and lower lung field but left lung field is clear. Follow-up chest x-ray obtained 2 days ago had demonstrated resolution of the infiltrate initially described prior to transfer to [facility]. Patient is clinically stable for discharge to shelter at this time. He' s completed 5 full days of combined therapy with azithromycin and ceftriaxone but due to underlying mild immunosuppression with Plaquenil I will continue oral antibiotics for an additional 2 days to complete 1 week antibiotic therapy. Breathing treatments will be continued as per current schedule but I suspect can be tapered to when necessary only in a brief period of time. Supplemental oxygen may be needed intermittently and this has been discussed with the patient. Mr. Davidson is to follow up with Dr. Urena in 1-2 weeks in the wound care clinic and Dr. Hammer in approximately one week. Time spent with patient: greater than 35 minutes Discharge Plan - Med Rec/Dispo Referrals/Follow Up: Wero Urena MD [Physician] - (1-2 weeks at wound care clinic) Wero Hammer MD [Physician] - 1 Week [facility] Instructions: COPD (Chronic Obstructive Pulmonary Disease) (DC), Pneumonia (GEN) Prescriptions: New Acetaminophen [Tylenol] 325 - 650 mg PO Q5H PRN tablet PRN Reason: Discomfort Albuterol/Ipratropium [Duoneb] 3 ml AEROSOL RTQID neb Amoxicillin/Potassium Clav [Augmentin 875-125 Tablet] 1 each PO BID #4 tablet Milk of Magnesia [Mom] 30 ml PO DAILY PRN udc PRN Reason: Constipation Senna + Docusate [Senna Plus Tablet] 1 tab PO BID PRN tablet PRN Reason: Constipation Albuterol/Ipratropium [Duoneb] 3 ml AEROSOL Q4H PRN neb PRN Reason: Shortness Of Air Guaifenesin/Dm [Mucinex Dm] 1 tab PO BID tablet PEG 3350 17gm PACKET [Miralax] 17 gm PO DAILY packet Continue Hydroxychloroquine Sulfate [Plaquenil] 200 mg PO BID #0 Losartan Potassium 100 mg PO DAILY #0 tab Oxaprozin [Daypro] 1 tab PO BID #42 tab Aspirin [Adult Low Dose Aspirin EC] 81 mg PO DAILY #60 tablet. Gabapentin [Neurontin] 1 cap PO HS Hydrocodone/APAP 7.5/325 [[place] 7.5/325] 1 - 2 tab PO Q6H PRN #14 tab PRN Reason: Pain Cyanocobalamin (Vitamin B-12) [B-12] 1 tab PO DAILY Budesonide 2 ml AEROSOL PRN - Disposition 03 To SNU Not [facility] (SNF) - Dismissal Complete Discharge Instructions are:: Complete
== END 2017-02-03 14:15 | DRG 193 ==
LOC: SUATTDRO 21:10 → MED 21:10
PROVIDERS: ADMIT Internal Medicine; ATTEND Internal Medicine